=== PATIENT | female | born 1955 | race Caucasian/White ===

== ENCOUNTER 2019-01-15 13:32 | Observation (INO) ==
--- NOTE | 2019-01-15 13:37 | Emergency Department Note ---
Disposition Clinical Impression: Hyponatremia, Suicidal ideation Elbow fracture, right Qualifiers: Encounter type: initial encounter Fracture type: closed Qualified Code(s): S42.401A - Unspecified fracture of lower end of right humerus, initial encounter for closed fracture Disposition: Admitted As Inpatient Time of Disposition: 16:47 General Adult HPI - General Stated complaint: psych, leg fracture Time Seen by Provider: 01/15/19 13:32 - Related Data Home Medications Medication Instructions Recorded Confirmed DULoxetine [Cymbalta] 60 mg PO BID 01/24/15 01/15/19 OLANZapine [Zyprexa] 15 mg PO HS 09/13/16 01/15/19 Trazodone HCl 50 mg PO HS 09/13/16 01/15/19 clonazePAM [Klonopin] 1 mg PO QID 09/13/16 01/15/19 Allergies Allergy/AdvReac Type Severity Reaction Status Date / Time Penicillins Allergy Difficulty Verified 01/15/19 13:53 Breathing Past Medical History - Past Medical History Medical history: Reports: COPD, GERD, other Surgical history: Reports: cholecystectomy Psychiatric history: Reports: anxiety, bipolar, panic disorder, prior suicide attempt, previous psychiatric hospitalization CLOTH SHADER history: Reports: no CLOTH SHADER history - Social History Smoking Status: Current every day smoker Smokeless Tobacco Status: No Alcohol use: Reports: recent Drug use: Reports: none Course Vital Signs Temperature 98 F 01/15/19 13:41 Pulse Rate 106 01/15/19 13:41 Respiratory Rate 16 01/15/19 13:41 Blood Pressure 136/106 01/15/19 13:41 O2 Sat by Pulse Oximetry 99 01/15/19 13:41 Temperature 98 F 01/15/19 13:41 Pulse Rate 108 01/15/19 15:14 Respiratory Rate 16 01/15/19 13:41 Blood Pressure 162/69 01/15/19 15:14 O2 Sat by Pulse Oximetry 99 01/15/19 15:14 Oxygen Delivery Oxygen Delivery Room Air Medical Decision Making - Lab Data Result diagrams: 01/15/19 13:54 Lab Results 01/15/19 Range/Units 13:54 Sodium 127 L (136-145) mEq/L Potassium 4.1 (3.5-5.1) mEq/L Chloride 95 L (98-107) mEq/L Carbon Dioxide 22 L (23-29) mEq/L BUN 4 L (8-23) mg/dL Creatinine 0.49 L (0.60-1.20) mg/dL Est GFR ( Amer) > 60 (> 60) Est GFR (Non-Af Amer) > 60 (> 60) BUN/Creatinine Ratio 8 (6-26) Glucose 123 H (70-105) mg/dL Calculated Osmolality 262 L (280-300) Calcium 9.5 (8.6-10.3) mg/dL Attestation Statement - Attestation Attestation: I reviewed the residents documentation and agree with the residents assessment and plan of care. I have personally had face to face time with the patient. (Brief History, Brief Exam, and MDM) I personally supervised and was present for the ahn/critical portions of the following procedures completed by the resident: (add procedures performed here). [id number] time provided Patient presents as a transfer from an outside facility due to hyponatremia. She presented there exhibiting anxiety. She does admit to a fall and was diagnosed with a right elbow fracture. She was splinted prior to transport. I did review the labs drawn at the outside facility and see what her sodium is 119. This could possibly be SIADH secondary to her Zyprexa. She will likely require medical admission for trending of her serum sodium level prior to mental health consultation
[2019-01-15] MEDS ORDERED: Acetaminophen 325 MG TABLET PO ONE (14:13)
[2019-01-15] MEDS ORDERED: Ibuprofen 600 MG TABLET PO ONE (14:13)
--- NOTE | 2019-01-15 14:13 | Emergency Department Note ---
Disposition Clinical Impression: Hyponatremia, Suicidal ideation Elbow fracture, right Qualifiers: Encounter type: sequela Fracture type: closed Qualified Code(s): S42.401S - Unspecified fracture of lower end of right humerus, sequela Disposition: Admitted As Inpatient Forms: ED Satisfaction Letter Time of Disposition: 14:32 General Adult HPI - General Chief complaint: ED Psychiatric Symptoms Stated complaint: psych, leg fracture Time Seen by Provider: 01/15/19 13:32 Source: patient, EMS Mode of arrival: EMS Limitations: no limitations Nursing Notes Reviewed: Yes Vital Signs Reviewed: Yes - History of Present Illness HPI Narrative: 63F with PMHx of COPD and GERD presents from [place] after stopping her medications and admitting to . Pt was found to by hyponatremic and was therefore sent to the ED for further evaluation before psych consultation. Patient states she recently fell on a hospital she has been shaking more since they stopped her Klonopin. She fell on her right arm and fractured her right elbow and it is now in a sling. She has felt extremely shaky recently and states that she wants to kill herself by overdosing on sleeping medications. She states she has felt suicidal like this for a while but never had a plan before. She has never had low sodium before but does admit to drinking more water recently as she constantly has a dry throat and feels thirsty. Pain Scale: 10 - Related Data Home Medications Medication Instructions Recorded Confirmed DULoxetine [Cymbalta] 60 mg PO BID 01/24/15 01/15/19 OLANZapine [Zyprexa] 15 mg PO HS 09/13/16 01/15/19 Trazodone HCl 50 mg PO HS 09/13/16 01/15/19 clonazePAM [Klonopin] 1 mg PO QID 09/13/16 01/15/19 Allergies Allergy/AdvReac Type Severity Reaction Status Date / Time Penicillins Allergy Difficulty Verified 01/15/19 13:53 Breathing All systems ED: reviewed and negative except as stated. Review of Systems: As Per HPI Constitutional: Denies: fever, chills, weakness ENT ED: Reports: throat pain Cardiovascular: Denies: chest pain, palpitations, dyspnea on exertion Respiratory: Denies: cough, dyspnea, wheezes Gastrointestinal: Denies: abdominal pain, nausea, vomiting Genitourinary: Reports: frequency. Denies: dysuria, hematuria Musculoskeletal: Denies: back pain, neck pain Integumentary: Denies: rash Neurological: Denies: headache Endocrine: Denies: fatigue Past Medical History - Past Medical History Attestation: Yes The following information was validated with the patient. Source: patient Medical history: Reports: COPD, GERD, other Surgical history: Reports: cholecystectomy Psychiatric history: Reports: anxiety, bipolar, panic disorder, prior suicide attempt, previous psychiatric hospitalization ENTERPRISE ACCOUNT MANAGER history: Reports: no ENTERPRISE ACCOUNT MANAGER history - Social History Smoking Status: Current every day smoker Smokeless Tobacco Status: No Alcohol use: Reports: none Drug use: Reports: marijuana Physical Exam - General Limitations: no limitations General appearance: alert, in no apparent distress - Head Head exam: atraumatic, normocephalic - Eye Eye exam: Present: normal appearance, EOMI - Chest Chest inspection: Present: normal inspection. Absent: tenderness - Respiratory Respiratory exam: Present: normal lung sounds bilaterally. Absent: wheezes - Cardiovascular Cardiovascular exam: Present: normal rhythm, tachycardia - Abdominal Exam Abdominal exam: Present: soft, Non-Tender. Absent: distention, guarding, rebound, rigidity - Extremities Exam Extremities exam: Present: other (Right arm in a splint with left knee and a knee brace. No other abnormalities on extremity exam.) - Neurological Exam Neurological exam: Present: alert, oriented X3 - Psychiatric Psychiatric exam: Present: normal affect, normal mood - Skin Skin exam: Present: warm, dry, intact Course Vital Signs Temperature 98 F 01/15/19 13:41 Pulse Rate 106 01/15/19 13:41 Respiratory Rate 16 01/15/19 13:41 Blood Pressure 136/106 01/15/19 13:41 O2 Sat by Pulse Oximetry 99 01/15/19 13:41 Temperature 98 F 01/15/19 13:41 Pulse Rate 106 01/15/19 13:41 Respiratory Rate 16 01/15/19 13:41 Blood Pressure 136/106 01/15/19 13:41 O2 Sat by Pulse Oximetry 99 01/15/19 13:41 Oxygen Delivery Oxygen Delivery Room Air Medical Decision Making - MDM Narrative Medical decision making narrative: Patient presents with hyponatremia and suicidal ideations. Due to her hypo natremia psych will not see her at this time. She will be admitted to the hospital for treatment of her hyponatremia. Urine sodium and also all the studies have been ordered and a repeat sodium has also been ordered. We will place a consult to psych for them to see her when she is an inpatient. Hospitalist has been paged. [id number] - patient has been accepted to the hospital by Dr. Tobin - Medical Records Medical records reviewed: Yes I reviewed the patient's medical records. - Lab Data Lab results reviewed: Yes I reviewed the patient's lab results. Result diagrams: 01/15/19 13:54 Lab Results 01/15/19 Range/Units 13:54 Sodium 127 L (136-145) mEq/L Potassium 4.1 (3.5-5.1) mEq/L Chloride 95 L (98-107) mEq/L Carbon Dioxide 22 L (23-29) mEq/L BUN 4 L (8-23) mg/dL Creatinine 0.49 L (0.60-1.20) mg/dL Est GFR ( Amer) > 60 (> 60) Est GFR (Non-Af Amer) > 60 (> 60) BUN/Creatinine Ratio 8 (6-26) Glucose 123 H (70-105) mg/dL Calculated Osmolality 262 L (280-300) Calcium 9.5 (8.6-10.3) mg/dL
[2019-01-15 14:32] LABS: BUN/Creatinine Ratio 8 (6-26); Blood Urea Nitrogen 4 mg/dL (8-23); Calcium 9.5 mg/dL (8.6-10.3); Carbon Dioxide 22 mEq/L (23-29); Chloride 95 mEq/L (98-107); Glucose 123 mg/dL (70-105); Osmolality,Calculated 262 (280-300); Potassium 4.1 mEq/L (3.5-5.1); Sodium 127 mEq/L (136-145); eGFR For African Americans > 60 (> 60); eGFR For Non-African Americans > 60 (> 60)
[2019-01-15] MEDS ORDERED: Nicotine 21 MG PATCH.TD24 TD ONE (14:45)
[2019-01-15] MEDS ORDERED: Naloxone 0.4 MG/ML INJ IVP PRN (16:13)
--- NOTE | 2019-01-15 16:16 | Internal Med History&Physical ---
Date of Encounter: 01/15/19 Time of Encounter: 16:00 Internal Medicine - H&P: HPI Chief complaint: Hyponatremia Admitted From: Emergency Dept Plans for Post Hospital Care: Home History of present illness: Ms. Osullivan is a 63 year old female with a past medical history significant for mood disorder, anxiety and depression, was brought to the emergency department from [facility] after she was found to have hyponatremia and suicidal ideation. Patient initially went to the [place] emergency for the psychiatric medical clearance as she will threaten to kill herself by taking overdose of pills. Lab work at that time showed sodium of 119. Patient also fell down and fractured her arm. Because of the suicidal ideation, hyponatremia patient was sent to the [facility]. Patient was hemodynamically stable in the emergency department. Repeat lab work showed a sodium of 127. Creatinine of 0.5 , elevated AST. UDS was negative. Because of the fall, x-ray of the elbow was done which showed mildly displaced fracture involving the articular surface of the capitellum. Patient was admitted for further management. At this point, patient denied any suicidal active ideation. She is in distress because he is not getting the Klonopin. She is been feeling weak. She is having the tremors because of weakness and Klonopin withdrawal.. Denies fever, chills, rigors. Endorses mild shortness of breath. Looking very comfortable. She mentions that she fell down because of the tremors. Patient endorses drinking a lot of water for the past few days that she has been feeling her mouth is very dry. Discussed with her the medication she is taking and she mentioned to take the Paxil, Cymbalta, trazodone, detrol. Denies any [id number] medications. Denies alcohol use. Past Med Surg Social Fam HX - Past Medical History Medical history: COPD, GERD, other Additional medical history: Peptic ulcer, Nerve pain Psychiatric history: anxiety, bipolar, panic disorder, prior suicide attempt, previous psychiatric hospitalization - Past Surgical History Surgical History: cholecystectomy Additional surgical history: D & C, Bilateral carpal tunnel release - Social History Smoking Status: Current every day smoker Smokeless Tobacco Status: No Alcohol use: none Drug use: marijuana - Additional Family History Additional family history: Mother has hisotry of CAD. Brother is also sufering from CAD Internal Medicine - H&P: Meds DULoxetine [Cymbalta] 60 mg PO BID 01/24/15 [History] OLANZapine [Zyprexa] 15 mg PO HS 09/13/16 [History] Trazodone HCl 50 mg PO HS 09/13/16 [History] clonazePAM [Klonopin] 1 mg PO QID 09/13/16 [History] Allergy/AdvReac Type Severity Reaction Status Date / Time Penicillins Allergy Difficulty Verified 01/15/19 13:53 Breathing All Systems PM: A 10-system review of systems was performed and is negative for pertinent findings except as documented above in the HPI. Review of systems: General: Negative for fever, chills, rigors. HEENT: Negative for neck swelling, discharge from nose, discharge from ears. EYES: Negative for any discharge from the eyes. Respiratory: Negative for shortness of breath, orthopnea, exertional dyspnea. Cardiovascular: Negative for chest pain, shortness of breath, orthopnea, PND. Gastrintestical: Negative for diarrhea, constipation, blood in stools. Genitourinary: Negative for dysuria, hematuria, nocturia, increased frequency of urine. Hematological: Negative for blood loss, negative for active cancer. Neurological: Negative for headache, dizziness, blurry vision, loss os power and sensations. Endocrinology: Negative for constipation, polyuria, polydipsia. Integumentary: See HPI Psychiatric: See HPI - Constitutional Vitals: Temp Pulse Resp BP Pulse Ox 98 F 108 16 162/69 99 01/15/19 13:41 01/15/19 15:14 01/15/19 13:41 01/15/19 15:14 01/15/19 15:14 Exam: General: Alert and oriented, no physical distress, able to follow commands. HEENT: No thyromegaly, no lymphadenopathy, no discharge. Eyes: No discharge. Normal conjuctiva, no icterus Respiratory: Normal vesicular breathing, no added sounds, breathing equal in both sides. CVS: Normal heart sounds, no murmurs, regular rhthm, no edema Extremities: No peripheral edema, peripheral pulses intact. Lymph nodes: No lymphadenopathy Musculoskeleal: Right arm wrapped. Tenderness with motion Gastrointestinal: Soft, nontender abdomen, normal abdominal sounds. No distention noted. Genitourinary: No paravertebral tenderness. Skin: No rash, ulcers or wound. Neurological: Alert and oriented. No focal deficits. Cranial nerves II-XII intact. Internal Med - H&P Results - Labs CBC & Chem 7: 01/15/19 13:54 Labs: BMP 01/15/19 13:54 Sodium 127 L Potassium 4.1 Chloride 95 L Carbon Dioxide 22 L BUN 4 L Creatinine 0.49 L Glucose 123 H Calcium 9.5 - Assessment and Plan (1) Hyponatremia Current Visit: Yes Status: Acute Assessment and plan: Etiology is unclear. Could be SIADH vs primary polydipsia. plasma osmolality is very low. Urine studies are pending. Patient was given 1 L of IV fluids in the [facility] emergency department. Repeat sodium is 127. Patient had a rise of 8 in 4 hours. Repeat sodium level stat. Consult nephrology who will see the patient today. BMP every 4 hours. Fluid restriction at this point of 1 L/day. Await further studies. -Hold off on antipsychotic medications of the patient because of the risk of SIADH. (2) Tobacco abuse Current Visit: Yes Status: Acute Assessment and plan: Smoked 3 pack per day. Nicotine patches ordered. Patient advised to quit smoking. (3) Elbow fracture, right Current Visit: Yes Status: Acute Assessment and plan: Because of the fall. Follow because of the tremors. Ortho consulted. x-ray findings mentioned in the history of present illness. -Pain management. Qualifiers: Encounter type: initial encounter Fracture type: closed Qualified Code(s): S42.401A - Unspecified fracture of lower end of right humerus, initial encounter for closed fracture (4) Suicidal ideation Current Visit: Yes Status: Acute Assessment and plan: Sitter ordered The psychiatry has been consulted. (5) Anxiety Current Visit: No Status: Acute Assessment and plan: Restart the patient Klonopin. Hold off on the other psychiatric medications at this point. (6) Cannabis abuse Current Visit: No Status: Acute Assessment and plan: Advised to stop using cannabis. (7) Depression Current Visit: No Status: Acute Assessment and plan: History of depression. As mentioned above continue Klonopin, hold off on the other medications considering concerns of SIADH. Qualifiers: Depression Type: unspecified Qualified Code(s): F32.9 - Major depressive disorder, single episode, unspecified (8) Benzodiazepine dependence Current Visit: Yes Status: Acute Assessment and plan: Patient has been having tremors because of the benzodiazepine withdrawal. To start the patient back on her home dose of Klonopin. Psychiatry was consulted. - Time Spent With Patient Total time spent is greater than 50% in coordination of care (as documented) at patient's floor/unit and/or counseling patient:
[2019-01-15] MEDS ORDERED: Ibuprofen 600 MG TABLET PO PRN (16:24)
--- NOTE | 2019-01-15 16:55 | Nephrology Consult Note ---
Date of Encounter: 01/15/19 Time of Encounter: 16:00 Assessment and Plan (1) Hyponatremia Current Visit: Yes Status: Acute Acute hyponatremia in the setting of excessive fluid consumption while on psych meds Agree with holding psych meds Agree sodium jump by 8 points after NS excessive, no more IVF today Can repeat sodium level to verify. Does not need D5W at this time Urine osm, sodium still not sent Check TSH, cortisol and uric acid levels (2) Elbow fracture, right Current Visit: Yes Status: Acute Ortho consulted Qualifiers: Encounter type: initial encounter Fracture type: closed Qualified Code(s): S42.401A - Unspecified fracture of lower end of right humerus, initial encounter for closed fracture (3) Suicidal ideation Current Visit: Yes Status: Acute Per primary, Psych consult needed History of Present Illness - Reason for Consult Consult date: 01/15/19 hyponatremia Requesting physician: Kevin Youngblood - History of Present Illness 63 y o female with PMH of COPD, GERD, anxiety and bipoladr d/ admitted as a transfer from [facility] where she presented with suicidal ideation. Pt was noted with sodium of 119 previously WNL. Pt received a bolus of NS with repeat sodium up to 127. Renal consulted for management. Pt landon nd examined somewhat agitated, demanding her medications immediately. Pt also affirms excessive fluid intake at least a gallon or two a day. Denies any diuretics. No N/V/D Past Med Surg Social Fam HX - Past Medical History Medical history: COPD, GERD, other Additional medical history: Peptic ulcer, Nerve pain Psychiatric history: anxiety, bipolar, panic disorder, prior suicide attempt, previous psychiatric hospitalization - Past Surgical History Surgical History: cholecystectomy Additional surgical history: D & C, Bilateral carpal tunnel release - Social History Smoking Status: Current every day smoker Smokeless Tobacco Status: No Alcohol use: none Drug use: marijuana - Family History Mother History Unknown: Yes Adopted: No Living Status: Hx Family Cardiac Disorders: Yes Hx Family Respiratory Disorders: No Hx Family Cancer: No Hx Family GI Disorders: No Hx Family Endocrine Disorder: No Hx Family Musculoskeletal Disorders: No Hx Family Neuromuscular Disorders: No Hx Family Neurologic Disorders: No Hx Family HEENT Disorders: No Hx Family Autoimmune Disorders: No Hx Family Reproductive Disorders: No Hx Family Psychosocial Disorders: No Medications and Allergies DULoxetine [Cymbalta] 60 mg PO BID 01/24/15 [History] OLANZapine [Zyprexa] 15 mg PO HS 09/13/16 [History] Pantoprazole Sodium [Protonix] 40 mg PO DAILY 01/16/19 [History] Ranitidine HCl [Acid English Composition Instructor] 150 mg PO BID 01/16/19 [History] Sucralfate [Carafate] 1 gm PO BID 01/16/19 [History] Tolterodine Tartrate [Detrol] 1 mg PO BID 01/16/19 [History] clonazePAM [Clonazepam] 0.5 mg PO HS 01/16/19 [History] clonazePAM [Clonazepam] 1 mg PO QAM 01/16/19 [History] traZODone [TraZODone] 50 mg PO HS 01/16/19 [History] Allergy/AdvReac Type Severity Reaction Status Date / Time Penicillins Allergy Difficulty Verified 01/15/19 13:53 Breathing Review of Systems All Systems review (narrative): The rest of the systema are negative Constitutional: fatigue (admits) Cardiovascular: chest pain (denies), leg edema (denies) Respiratory: dyspnea (denies) Psychiatric: anxiety (admits), depression (admits), suicidal ideation (admits) Exam - Vital Signs Vital signs: Initial Vital Signs Temp Pulse Resp BP Pulse Ox 98 F 106 16 136/106 99 01/15/19 13:41 01/15/19 13:41 01/15/19 13:41 01/15/19 13:41 01/15/19 13:41 Vital Signs - Last 8 Hours Temp Pulse Resp BP Pulse Ox 01/15/19 15:14 108 162/69 99 01/15/19 13:41 98 F 106 16 136/106 99 Intake and Output 01/15/19 01/15/19 01/15/19 07:59 15:59 23:59 Other: Weight 42.638 kg Patient Weight 01/15/19 23:59 Weight 42.638 kg - General Appearance General appearance: chronically ill (NAD) EENT: ATNC, mucous membranes moist Neck: no JVD, supple Respiratory: clear Cardiology: no edema, normal S1, normal S2 Gastrointestinal: no tenderness, no guarding Integumentary: warm and dry Neurologic: no focal deficit Musculoskeletal: no deformities Psychiatric: agitated, cooperative Results - Lab Results 01/16/19 02:07 01/16/19 17:17 Most recent lab results 01/15/19 13:54 Calcium 9.5 Consult Discharge Plan - Plan Referrals: Ty Parikh MD [Primary Care Provider] -
[2019-01-15] MEDS: clonazePAM 1 MG TABLET PO SCH ×2 (17:09→21:20)
[2019-01-15] MEDS: *HR* Heparin 5,000 UNIT/ML VIAL SQ SCH (17:31)
[2019-01-15 17:47] LABS: Sodium, Urine 29.4 mEq/L
[2019-01-15 18:28] LABS: BUN/Creatinine Ratio 13 (6-26); Blood Urea Nitrogen 7 mg/dL (8-23); Calcium 9.4 mg/dL (8.6-10.3); Carbon Dioxide 26 mEq/L (23-29); Chloride 96 mEq/L (98-107); Glucose 116 mg/dL (70-105); Osmolality,Calculated 265 (280-300); Potassium 4.3 mEq/L (3.5-5.1); Sodium 128 mEq/L (136-145); Uric Acid 2.7 mg/dL (2.3-7.6); eGFR For African Americans > 60 (> 60); eGFR For Non-African Americans > 60 (> 60)
--- NOTE | 2019-01-15 19:48 | Orthopedic Consult Note ---
Date of Encounter: 01/15/19 Time of Encounter: 19:43 History of Present Illness Chief complaint: Right elbow pain HPI: Ms. Osullivan is a 63 year old right hand dominant female who sustained an injury to her right elbow in a fall. Patient is unsure the exact mechanism but describes pain predominantly involving the lateral side of the right elbow. This reportedly happened several days ago. At this time the patient is complaining of lateral pain and a popping sensation as well as swelling and redness in the arm. Denies neurovascular complaints. Denies any other injuries. I reviewed the patient's completed history and physical examination as well as the completed medical record. Pertinent orthopedic examination reveals marked amount of erythema in the right arm from the elbow distal. There is ecchymosis and edema especially involving the extensor compartment proximally. Tenderness is identified over the lateral epicondyle and to a lesser degree of the radial head. Motion is limited to about a 20 degree extension loss and approximately 25-30 degree flexion loss. Supination is about 45 degrees. Neurovascular exam is intact. I reviewed the x-rays of the right elbow. This reveals a anterior fat pad. There is what appears to be a nondisplaced fracture involving the lateral aspect of the capitellum. It is unclear if this is an impaction type injury with a small avulsion fracture. Impression: Nondisplaced fracture right capitellum Recommendation: This is a stable fracture and I recommend conservative treatment with the use of a sling and starting the patient on active range of motion to minimize stiffness. I have removed the previously placed long arm splint. Would recommend the sling and possibly instituting a supervised therapy program with occupational therapist. Follow-up can be as an outpatient in about 3-4 weeks' time. Thank you very much for allowing me to see and care for Mrs. Osullivan. Sincerely, Kash Engle,DO Past Med Surg Social Fam HX - Past Medical History Medical history: COPD, GERD, other Additional medical history: Peptic ulcer, Nerve pain Psychiatric history: anxiety, bipolar, panic disorder, prior suicide attempt, previous psychiatric hospitalization - Past Surgical History Surgical History: cholecystectomy Additional surgical history: D & C, Bilateral carpal tunnel release - Social History Smoking Status: Current every day smoker Smokeless Tobacco Status: No Alcohol use: none Drug use: marijuana - Family History Mother History Unknown: Yes Adopted: No Living Status: Hx Family Cardiac Disorders: Yes Hx Family Respiratory Disorders: No Hx Family Cancer: No Hx Family GI Disorders: No Hx Family Endocrine Disorder: No Hx Family Musculoskeletal Disorders: No Hx Family Neuromuscular Disorders: No Hx Family Neurologic Disorders: No Hx Family HEENT Disorders: No Hx Family Autoimmune Disorders: No Hx Family Reproductive Disorders: No Hx Family Psychosocial Disorders: No Medications and Allergies DULoxetine [Cymbalta] 60 mg PO BID 01/24/15 [History] OLANZapine [Zyprexa] 15 mg PO HS 09/13/16 [History] Trazodone HCl 50 mg PO HS 09/13/16 [History] clonazePAM [Klonopin] 1 mg PO QID 09/13/16 [History] Allergy/AdvReac Type Severity Reaction Status Date / Time Penicillins Allergy Difficulty Verified 01/15/19 13:53 Breathing All Systems Reviewed: The remainder of the systems were reviewed and are negative Physical Exam - Constitutional Vitals: Temp Pulse Resp BP Pulse Ox 98 F 108 16 162/69 99 01/15/19 13:41 01/15/19 15:14 01/15/19 13:41 01/15/19 15:14 01/15/19 15:14 Results - Labs Result Diagrams: 01/15/19 16:25 Labs: Abnormal lab results Sodium 128 mEq/L (136-145) L 01/15/19 16:25 Chloride 96 mEq/L (98-107) L 01/15/19 16:25 Carbon Dioxide 22 mEq/L (23-29) L 01/15/19 13:54 BUN 7 mg/dL (8-23) L 01/15/19 16:25 Creatinine 0.55 mg/dL (0.60-1.20) L 01/15/19 16:25 Glucose 116 mg/dL (70-105) H 01/15/19 16:25 Calculated Osmolality 265 (280-300) L 01/15/19 16:25 Urine Osmolality 143 mOsm/kg (300-1090) L 01/15/19 17:23 All other labs normal. - Diagnostic results Elbow x-ray: image reviewed Consult Discharge Plan - Plan Referrals: Ty Parikh MD [Primary Care Provider] -
[2019-01-15 20:23] LABS: BUN/Creatinine Ratio 16 (6-26); Blood Urea Nitrogen 9 mg/dL (8-23); Calcium 8.9 mg/dL (8.6-10.3); Carbon Dioxide 26 mEq/L (23-29); Chloride 95 mEq/L (98-107); Glucose 131 mg/dL (70-105); Osmolality,Calculated 260 (280-300); Potassium 4.3 mEq/L (3.5-5.1); Sodium 125 mEq/L (136-145); eGFR For African Americans > 60 (> 60); eGFR For Non-African Americans > 60 (> 60)
[2019-01-15] MEDS: *HR* Promethazine 25 MG/ML VIAL IVP PRN (21:20)
[2019-01-15] MEDS ORDERED: Ipratropium/Albuterol Neb 3 ML IH PRN (21:31)
[2019-01-15] MEDS ORDERED: Menthol 9.1 MG LOZENGE PO PRN (21:31)
[2019-01-15 23:50] LABS: BUN/Creatinine Ratio 13 (6-26); Blood Urea Nitrogen 7 mg/dL (8-23); Calcium 8.8 mg/dL (8.6-10.3); Carbon Dioxide 23 mEq/L (23-29); Chloride 97 mEq/L (98-107); Glucose 87 mg/dL (70-105); Osmolality,Calculated 263 (280-300); Potassium 4.1 mEq/L (3.5-5.1); Sodium 128 mEq/L (136-145); eGFR For African Americans > 60 (> 60); eGFR For Non-African Americans > 60 (> 60)
[2019-01-16 02:21] LABS: Basophils # 0.1 K/mcL (0.0-0.2); Basophils % 0.7 %; Eosinophils % 0.4 %; Hematocrit 33.5 % (35.3-44.9); Hemoglobin 11.9 g/dL (11.5-15.4); Immature Granulocytes % 0.4 % (0-4); Lymphocytes # 1.7 K/mcL (0.6-4.6); Mean Corpuscular HGB Conc 35.5 g/dL (31.6-35.5); Mean Corpuscular Hemoglobin 32.8 pg (28.0-33.3); Mean Corpuscular Volume 92.3 fL (83.0-100.0); Mean Platelet Volume 10.2 fL (9.4-12.4); Monocytes # 0.9 K/mcL (0.0-1.3); Monocytes % 12.4 %; Neutrophils # 4.7 K/mcL (1.6-8.9); Platelet Count 242 K/mcL (140-400); Red Blood Count 3.63 M/mcL (3.82-4.97); Red Cell Distribution Width 12.4 % (11.5-14.5); Segmented Neutrophils % 63.1 %; White Blood Count 7.4 K/mcL (4.3-11.1)
[2019-01-16 02:44] LABS: Alanine Aminotransferase 37 Units/L (7-52); Albumin/Globulin Ratio 1.9 (1.1-2.2); Alkaline Phosphatase 67 Units/L (34-104); Aspartate Amino Transferase 83 Units/L (13-39); BUN/Creatinine Ratio 11 (6-26); Bilirubin,Total 0.6 mg/dL (0.3-1.0); Blood Urea Nitrogen 6 mg/dL (8-23); Calcium 9.1 mg/dL (8.6-10.3); Carbon Dioxide 26 mEq/L (23-29); Chloride 98 mEq/L (98-107); Globulin 2.1 g/dL (2.4-3.5); Glucose 94 mg/dL (70-105); Osmolality,Calculated 271 (280-300); Sodium 132 mEq/L (136-145); Total Protein 6.1 g/dL (6.4-8.9); eGFR For African Americans > 60 (> 60); eGFR For Non-African Americans > 60 (> 60)
[2019-01-16] MEDS ORDERED: D5% in Water 250 ML IVC SCH (03:30)
[2019-01-16] MEDS: *HR* Promethazine 25 MG/ML VIAL IVP PRN ×2 (03:48→23:31)
[2019-01-16] MEDS: Acetaminophen 325 MG TABLET PO PRN (05:15)
[2019-01-16] MEDS: *HR* Heparin 5,000 UNIT/ML VIAL SQ SCH ×2 (05:16→18:54)
[2019-01-16 06:05] LABS: BUN/Creatinine Ratio 11 (6-26); Blood Urea Nitrogen 6 mg/dL (8-23); Carbon Dioxide 25 mEq/L (23-29); Chloride 99 mEq/L (98-107); Glucose 88 mg/dL (70-105); Osmolality,Calculated 273 (280-300); Sodium 133 mEq/L (136-145); eGFR For African Americans > 60 (> 60); eGFR For Non-African Americans > 60 (> 60)
[2019-01-16 08:43] LABS: BUN/Creatinine Ratio 11 (6-26); Blood Urea Nitrogen 6 mg/dL (8-23); Calcium 8.9 mg/dL (8.6-10.3); Carbon Dioxide 25 mEq/L (23-29); Chloride 99 mEq/L (98-107); Glucose 96 mg/dL (70-105); Osmolality,Calculated 271 (280-300); Potassium 4.1 mEq/L (3.5-5.1); Sodium 132 mEq/L (136-145); eGFR For African Americans > 60 (> 60); eGFR For Non-African Americans > 60 (> 60)
--- NOTE | 2019-01-16 08:55 | Consult Note ---
Date of Encounter: 01/16/19 Time of Encounter: 08:55 Assessment & Recommendation (1) Depression Current visit: No Status: Acute Assessment & Recommendation: Patient endorses a history of depression and anxiety, and reports that she has had multiple episodes of suicidal ideation the past. She reports that she does have a plan, and would take "sleeping pills" to in her life. She denies having ever attempted this in the past. When asked if she has access to these types of medication, patient reports that she is on trazodone, which is what she would use in her life. Patient reports that she does not have much social support in place, as her family members have not been talking to her. Recommendations: - Continue home medications of trazodone and Cymbalta. - Hold Zyprexa, as this may be interesting to her hyponatremia. - Patient's home medication list in [facility] shows Klonopin 1 mg QID; however, review of her [facility] report shows Klonopin 1 mg with 21 pills for 14 days supply, which would be consistent with 0.5mg TID. Recommend continuing that dose of klonopin at this time. - Once medically stable, patient [facility] for [facility] management and stabilization of her depression. Qualifiers: Depression Type: major depressive disorder Major depression recurrence: recurrent Active/Remission status: currently active Major depression episode severity: severe Psychotic features: without psychotic features Qualified Code(s): F33.2 - Major depressive disorder, recurrent severe without psychotic features History of Present Illness Requesting Physician: Kevin Youngblood Reason for consult: Suicidal ideation History of present illness: Ms. Osullivan is a 63 year old female with a history of COPD, GERD, anxiety, depression, bipolar disorder, panic disorder, and previous psychiatric hospitalization who presented to the emergency department as a transfer from [facility], where she was found to have hyponatremia and endorsed suicidal ideation. Serum sodium was found to be significantly decreased at 119 at that facility, with repeat laboratory studies performed upon arrival to [facility] showing sodium of 127. The patient was admitted to the medical floor for management of hyponatremia and consult was placed to psychiatry for evaluation. Patient does have a history of depression, with multiple emergency department visits for psychiatric complaints and two inpatient admissions to in the past. On evaluation today, patient endorses that she has thoughts of killing herself on a daily basis, and does endorse a plan to end her life, stating that she would take an overdose of sleeping pills, which she currently has a prescription for. She voices that she does not have much social or family support, as she only has 2 cousins, one of which will not speak to her after something that she must have said to them while high on marijuana. She does report that she has 2 friends that live [place], one of whom is currently taking care of her dog but she is in the hospital. She voices a long- standing history of depression and anxiety, and lists multiple medications that she is currently on. She does inquire as to why she has not received her morning medication, including Klonopin, Cymbalta, and a "medication for her bladder". She denies any visual or auditory hallucinations or racing thoughts. CC: Kevin Youngblood Past Med Surg Social Fam HX - Past Medical History Medical history: COPD, GERD, other - Past Psychiatric History Psychiatric history: Reports: anxiety, depression, previous psychiatric hospitalization - Past Surgical History Surgical History: cholecystectomy - Social History Smoking Status: Current every day smoker Smokeless Tobacco Status: No Alcohol use: none Drug use: marijuana (reports weekly marijuana use) - Family History Mother History Unknown: Yes Adopted: No Living Status: Hx Family Cardiac Disorders: Yes Hx Family Respiratory Disorders: No Hx Family Cancer: No Hx Family GI Disorders: No Hx Family Endocrine Disorder: No Hx Family Musculoskeletal Disorders: No Hx Family Neuromuscular Disorders: No Hx Family Neurologic Disorders: No Hx Family HEENT Disorders: No Hx Family Autoimmune Disorders: No Hx Family Reproductive Disorders: No Hx Family Psychosocial Disorders: No Medications & Allergies DULoxetine [Cymbalta] 60 mg PO BID 01/24/15 [History] OLANZapine [Zyprexa] 15 mg PO HS 09/13/16 [History] Trazodone HCl 50 mg PO HS 09/13/16 [History] clonazePAM [Klonopin] 1 mg PO QID 09/13/16 [History] Allergy/AdvReac Type Severity Reaction Status Date / Time Penicillins Allergy Difficulty Verified 01/15/19 13:53 Breathing Review of Systems Constitutional: Denies: fever, chills Cardiovascular: Denies: chest pain Respiratory: Denies: cough, dyspnea Gastrointestinal: Reports: nausea. Denies: abdominal pain Musculoskeletal: Denies: back pain Integumentary: Denies: rash Neurological: Reports: abnormal gait. Denies: headache Psychiatric: Reports: depression, anxiety, suicidal ideation. Denies: abnormal sleep pattern, change in appetite, homicidal ideation, auditory hallucinations, visual hallucinations, mood swings Endocrine: Denies: fatigue Psychiatry Exam - Constitutional Vitals: Temp Pulse Resp BP Pulse Ox 98.2 F 100 16 118/64 96 01/16/19 07:44 01/16/19 07:44 01/16/19 07:44 01/16/19 07:44 01/16/19 07:44 General appearance: age & developmentally appropriate, well-groomed, well- nourished - Musculoskeletal Strength & Tone: normal for patient (Grossly normal on observation) - Psychiatric Patient Orientation: Yes Person, Yes Time, Yes Place Level of alertness: Alert Behavior: calm, cooperative Psychomotor activity: Normal Eye Contact: Maintains Eye Contact Mood Description: Depressed Affect description: congruent with mood, full range Speech Volume: Normal Speech pattern: normal rate, normal rhythm, normal tone, fluent, spontaneous Language & Vocabulary: consistent with education Thought Process: Linear, Goal Oriented Thought Content: Yes Intact, Yes Suicidal ideation, No Homicidal ideation, No Overt delusions Perceptual Disturbances: No Reacting to internal stimuli, No Auditory hallucinations, No Visual hallucinations Attention Span Ability: Capable of Focused Attention Memory Description: Grossly Intact Patient Reliability: Questionable Historian Intelligence Estimate: Average Results - Labs Labs: Laboratory Last Values WBC 7.4 K/mcL (4.3-11.1) D 01/16/19 02:07 RBC 3.63 M/mcL (3.82-4.97) L 01/16/19 02:07 Hgb 11.9 g/dL (11.5-15.4) 01/16/19 02:07 Hct 33.5 % (35.3-44.9) L 01/16/19 02:07 MCV 92.3 fL (83.0-100.0) 01/16/19 02:07 MCH 32.8 pg (28.0-33.3) 01/16/19 02:07 MCHC 35.5 g/dL (31.6-35.5) 01/16/19 02:07 RDW 12.4 % (11.5-14.5) 01/16/19 02:07 Plt Count 242 K/mcL (140-400) 01/16/19 02:07 MPV 10.2 fL (9.4-12.4) 01/16/19 02:07 Immature Gran % 0.4 % (0-4) 01/16/19 02:07 Seg Neutrophils % 63.1 % 01/16/19 02:07 Lymphocytes % 23.0 % 01/16/19 02:07 Monocytes % 12.4 % 01/16/19 02:07 Eosinophils % 0.4 % 01/16/19 02:07 Basophils % 0.7 % 01/16/19 02:07 Neutrophils # 4.7 K/mcL (1.6-8.9) 01/16/19 02:07 Lymphocytes # 1.7 K/mcL (0.6-4.6) 01/16/19 02:07 Monocytes # 0.9 K/mcL (0.0-1.3) 01/16/19 02:07 Eosinophils # 0.0 K/mcL (0.0-0.6) 01/16/19 02:07 Basophils # 0.1 K/mcL (0.0-0.2) 01/16/19 02:07 Sodium 132 mEq/L (136-145) L 01/16/19 08:00 Potassium 4.1 mEq/L (3.5-5.1) 01/16/19 08:00 Chloride 99 mEq/L (98-107) 01/16/19 08:00 Carbon Dioxide 25 mEq/L (23-29) 01/16/19 08:00 BUN 6 mg/dL (8-23) L 01/16/19 08:00 Creatinine 0.53 mg/dL (0.60-1.20) L 01/16/19 08:00 Est GFR ( Amer) > 60 (> 60) 01/16/19 08:00 Est GFR (Non-Af Amer) > 60 (> 60) 01/16/19 08:00 BUN/Creatinine Ratio 11 (6-26) 01/16/19 08:00 Glucose 96 mg/dL (70-105) 01/16/19 08:00 Serum Osmolality 265 mOsm/kg (280-300) L 01/15/19 19:56 Calculated Osmolality 271 (280-300) L 01/16/19 08:00 Uric Acid 2.7 mg/dL (2.3-7.6) 01/15/19 16:25 Calcium 8.9 mg/dL (8.6-10.3) 01/16/19 08:00 Magnesium 2.0 mg/dL (1.6-2.6) 01/16/19 02:07 Total Bilirubin 0.6 mg/dL (0.3-1.0) 01/16/19 02:07 AST 83 Units/L (13-39) H 01/16/19 02:07 ALT 37 Units/L (7-52) 01/16/19 02:07 Alkaline Phosphatase 67 Units/L (34-104) 01/16/19 02:07 Serum Total Protein 6.1 g/dL (6.4-8.9) L 01/16/19 02:07 Albumin 4.0 g/dL (3.5-5.7) 01/16/19 02:07 Globulin 2.1 g/dL (2.4-3.5) L 01/16/19 02:07 Albumin/Globulin Ratio 1.9 (1.1-2.2) 01/16/19 02:07 TSH 1.170 mcIU/mL (0.340-5.600) 01/15/19 16:25 Random Cortisol 17.2 mcg/dl 01/15/19 16:25 Urine Osmolality 143 mOsm/kg (300-1090) L 01/15/19 17:23 Urine Creatinine 17 mg/dL 01/15/19 17:23 Urine Sodium 29.4 mEq/L 01/15/19 17:23 Consult Discharge Plan - Plan Referrals: Ty Parikh MD [Primary Care Provider] - - Attending Attestation I examined this patient and my medical decision-making was reviewed with the Resident Physician. I agree with the documented findings, disposition and treatment plan as described except to the extent set forth below. Patient continues to endorse suicidal thoughts. She requires inpatient care. Given her age and mobility issues she requires a geriatric psychiatric unit.
[2019-01-16] MEDS: clonazePAM 1 MG TABLET PO SCH ×2 (10:10→13:42)
--- NOTE | 2019-01-16 16:51 | Internal Med Progress Note ---
Hospitalist Progress Note - Encounter Date of Encounter: 01/16/19 Time of Encounter: 08:00 - Subjective Interval History: Patient was seen at bedside. Is currently medically stable. Denies fever, chills, rigors. Denies chest pain or shortness of breath. Sodium went up to 133 in the morning and she was given D5 bolus. Repeat was 132. Patient denies a ny dysarthria, dizziness, confusion, focal weakness. Overall feeling better. Sitter in place. - Exam Vitals: Temp Pulse Resp BP Pulse Ox 98.1 F 101 24 133/73 96 01/16/19 14:53 01/16/19 14:53 01/16/19 14:53 01/16/19 14:53 01/16/19 14:53 Exam: General: Alert and oriented, no physical distress, able to follow commands. HEENT: No thyromegaly, no lymphadenopathy, no discharge. Eyes: No discharge. Normal conjuctiva, no icterus Respiratory: Normal vesicular breathing, no added sounds, breathing equal in both sides. CVS: Normal heart sounds, no murmurs, regular rhthm, no edema Extremities: No peripheral edema, peripheral pulses intact. Lymph nodes: No lymphadenopathy Musculoskeleal: Right arm wrapped. Tenderness with motion Gastrointestinal: Soft, nontender abdomen, normal abdominal sounds. No distention noted. Genitourinary: No paravertebral tenderness. Skin: No rash, ulcers or wound. Neurological: Alert and oriented. No focal deficits. Cranial nerves II-XII intact. - Assessment and Plan (1) Hyponatremia Current Visit: Yes Status: Acute Assessment and Plan: Etiology is unclear. Could be SIADH vs primary polydipsia. plasma osmolality is very low. Urine osmolality is also low which goes with polydipsia but the patient was also given IV fluids in the [place] emergency department. Patient initial sodium was 119, went up to 127, remained stable around 125, then went up to 133, she was given 250 of D5, current sodium is 132. We will repeat sodium level stat. Nephrology on board. Appreciate recommendations. Fluid restriction at this point of 1 L/day. -As per psychiatric recommendations, hold off on olanzapine. (2) Tobacco abuse Current Visit: Yes Status: Acute Assessment and Plan: Smoked 3 pack per day. Nicotine patches ordered. Patient advised to quit smoking. (3) Elbow fracture, right Current Visit: Yes Status: Acute Assessment and Plan: Because of the fall. Fall because of the tremors. Ortho consulted. Recommended conservative management. x-ray findings Nondisplaced fracture right capitellum -Pain management. (4) Suicidal ideation Current Visit: Yes Status: Acute Assessment and Plan: Sitter ordered The psychiatry has been consulted. -Patient will benefit from inpatient psychiatric therapy. (5) Anxiety Current Visit: No Status: Acute Assessment and Plan: Restart the patient Klonopin. Hold off on the other psychiatric medications at this point. (6) Cannabis abuse Current Visit: No Status: Acute Assessment and Plan: Advised to stop using cannabis. (7) Depression Current Visit: No Status: Acute Assessment and Plan: History of depression. Restart the patient Klonopin. Trazodone and Cymbalta have also been started as per psychiatric recom mendations.. (8) Benzodiazepine dependence Current Visit: Yes Status: Acute Assessment and Plan: Patient has been having tremors because of the benzodiazepine withdrawal. To start the patient back on her home dose of Klonopin. - Time Spent with Patient Total time spent is greater than 50% in coordination of care (as documented) at patient's floor/unit and/or counseling patient: Internal Medicine: Result - Labs CBC & Chem 7: 01/16/19 02:07 01/16/19 08:00 Labs: Short CBC 01/16/19 Range/Units 02:07 WBC 7.4 D (4.3-11.1) K/mcL Hgb 11.9 (11.5-15.4) g/dL Hct 33.5 L (35.3-44.9) % Plt Count 242 (140-400) K/mcL Neutrophils # 4.7 (1.6-8.9) K/mcL BMP 01/15/19 01/15/19 01/15/19 16:25 19:56 22:49 Sodium 128 L 125 L 128 L Potassium 4.3 4.3 4.1 Chloride 96 L 95 L 97 L Carbon Dioxide 26 26 23 BUN 7 L 9 7 L Creatinine 0.55 L 0.55 L 0.53 L Glucose 116 H 131 H 87 Calcium 9.4 8.9 8.8 01/16/19 01/16/19 01/16/19 02:07 05:15 08:00 Sodium 132 L 133 L 132 L Potassium 4.0 4.0 4.1 Chloride 98 99 99 Carbon Dioxide 26 25 25 BUN 6 L 6 L 6 L Creatinine 0.57 L 0.56 L 0.53 L Glucose 94 88 96 Calcium 9.1 9.0 8.9 Liver Function 01/16/19 Range/Units 02:07 Total Bilirubin 0.6 (0.3-1.0) mg/dL AST 83 H (13-39) Units/L ALT 37 (7-52) Units/L Alkaline Phosphatase 67 (34-104) Units/L Albumin 4.0 (3.5-5.7) g/dL Consult Discharge Plan - Plan Referrals: Ty Parikh MD [Primary Care Provider] - (3) Elbow fracture, right Qualifiers: Encounter type: initial encounter Fracture type: closed Qualified Code(s): S42.401A - Unspecified fracture of lower end of right humerus, initial encounter for closed fracture (7) Depression Qualifiers: Depression Type: major depressive disorder Major depression recurrence: recurrent Active/Remission status: currently active Major depression episode severity: severe Psychotic features: without psychotic features Qualified Code(s): F33.2 - Major depressive disorder, recurrent severe without psychotic features
[2019-01-16 17:45] LABS: BUN/Creatinine Ratio 17 (6-26); Blood Urea Nitrogen 10 mg/dL (8-23); Calcium 9.3 mg/dL (8.6-10.3); Carbon Dioxide 28 mEq/L (23-29); Chloride 98 mEq/L (98-107); Glucose 89 mg/dL (70-105); Osmolality,Calculated 277 (280-300); Potassium 3.9 mEq/L (3.5-5.1); Sodium 134 mEq/L (136-145); eGFR For African Americans > 60 (> 60); eGFR For Non-African Americans > 60 (> 60)
[2019-01-16] MEDS: clonazePAM 0.5 MG TABLET PO SCH ×2 (18:54→19:40)
[2019-01-16] MEDS: Sucralfate 1 GM TABLET PO SCH (19:40)
[2019-01-16] MEDS: traZODone 50 MG TABLET PO SCH (19:40)
[2019-01-16] MEDS: Nicotine 21 MG PATCH.TD24 TD SCH (21:24)
--- NOTE | 2019-01-16 23:59 | Nephrology Progress Note ---
Date of Encounter: 01/16/19 Time of Encounter: 12:00 - Assessment and Plan (1) Hyponatremia Current Visit: Yes Status: Acute Sodium noted at 132 after initial acute rise yesterday from 119 to 127 Continue fluid restriction to 2 liters a day Continue liberalized sodium in diet Urine osm consistent with polydipsia Can stop serial sodium checks at this time (2) Elbow fracture, right Current Visit: Yes Status: Acute Ortho on board Qualifiers: Encounter type: initial encounter Fracture type: closed Qualified Code( s): S42.401A - Unspecified fracture of lower end of right humerus, initial encounter for closed fracture (3) Suicidal ideation Current Visit: Yes Status: Acute Psych on board Subjective Interval history: Pt seen and examined feeling better, just woke up from sleep. Sitter at bedside, pt demanding her meds to been given immediately Objective - Vital Signs Vital signs: Vital Signs Temp Pulse Resp BP Pulse Ox 01/16/19 21:07 98.5 F 94 15 124/74 98 01/16/19 14:53 98.1 F 101 24 133/73 96 01/16/19 11:06 98.0 F 101 16 117/71 97 01/16/19 07:44 98.2 F 100 16 118/64 96 01/16/19 04:24 97.6 F 68 16 142/68 98 01/16/19 01:10 97.6 F 80 16 147/72 95 Intake and Output 01/16/19 01/16/19 01/16/19 07:59 15:59 23:59 Intake Total 980 / 1470 490 / 1470 Output Total 760 / 760 Balance -760 / 710 980 / 710 490 / 710 Intake: IV Fluids 250 / 250 Dextrose 5% 250 ML @ 999 mls/hr 250 / 250 IVC .Q16M OLGA Rx#:[id number] Oral 980 / 1220 240 / 1220 Output: Urine 760 / 760 Other: Meal Refused lunch Dinner Percent of Meal Consumed 0% 20% Stool Size Small Small Stool Consistency formed loose liquid Stool Color Brown Brown Green # Voids 1 # Bowel Movements 1 Weight 43.2 kg Patient Weight 01/16/19 23:59 Weight 43.2 kg - General Appearance General appearance: Present: chronically ill (NAD) EENT: Present: ATNC, mucous membranes moist Neck: Present: no JVD, supple Respiratory: Present: clear Cardiology: Present: no edema, normal S1, normal S2 Gastrointestinal: Present: no tenderness, no guarding Integumentary: Present: warm and dry Neurologic: Present: no focal deficit Musculoskeletal: Present: no deformities Psychiatric: Present: mood/affect appropriate, cooperative - Lab 01/16/19 02:07 01/16/19 17:17 Most recent lab results 01/16/19 17:17 Calcium 9.3 Consult Discharge Plan - Plan Referrals: Ty Parikh MD [Primary Care Provider] -
[2019-01-17 04:51] LABS: BUN/Creatinine Ratio 17 (6-26); Blood Urea Nitrogen 11 mg/dL (8-23); Calcium 9.2 mg/dL (8.6-10.3); Carbon Dioxide 24 mEq/L (23-29); Chloride 99 mEq/L (98-107); Glucose 97 mg/dL (70-105); Osmolality,Calculated 273 (280-300); Sodium 132 mEq/L (136-145); eGFR For African Americans > 60 (> 60); eGFR For Non-African Americans > 60 (> 60)
[2019-01-17] MEDS: *HR* Heparin 5,000 UNIT/ML VIAL SQ SCH ×2 (05:51→17:12)
[2019-01-17] MEDS: Nicotine 21 MG PATCH.TD24 TD SCH (07:51)
[2019-01-17] MEDS: Sucralfate 1 GM TABLET PO SCH ×2 (07:52→22:02)
[2019-01-17] MEDS: clonazePAM 0.5 MG TABLET PO SCH ×4 (07:52→22:02)
[2019-01-17] MEDS: *HR* Promethazine 25 MG/ML VIAL IVP PRN ×3 (07:53→20:35)
--- NOTE | 2019-01-17 09:28 | Psychiatry Progress Note ---
Date of Encounter: 01/17/19 Time of Encounter: 09:28 Review of Systems Psychiatric: Reports: depression, anxiety, suicidal ideation. Denies: abnormal sleep pattern, change in appetite, homicidal ideation, auditory hallucinations, visual hallucinations, mood swings Results - Vital Signs Vital Signs: Temp Pulse Resp BP Pulse Ox 97.8 F 100 15 108/57 96 01/17/19 07:11 01/17/19 07:11 01/17/19 07:11 01/17/19 07:11 01/17/19 07:11 - Labs Labs: Laboratory Results - last 24 hr 01/16/19 01/17/19 17:17 04:13 Sodium 134 L 132 L Potassium 3.9 4.0 Chloride 98 99 Carbon Dioxide 28 24 BUN 10 11 Creatinine 0.59 L 0.63 Est GFR ( Amer) > 60 > 60 Est GFR (Non-Af Amer) > 60 > 60 BUN/Creatinine Ratio 17 17 Glucose 89 97 Calculated Osmolality 277 L 273 L Calcium 9.3 9.2 Assessment and Plan (1) Depression Current visit: No Status: Acute Qualifiers: Depression Type: major depressive disorder Major depression recurrence: recurrent Active/Remission status: currently active Major depression episode severity: severe Psychotic features: without psychotic features Qualified C ode(s): F33.2 - Major depressive disorder, recurrent severe without psychotic features Consult Discharge Plan - Plan Referrals: Ty Parikh MD [Primary Care Provider] - - Attending Attestation I examined this patient and my medical decision-making was reviewed with the Resident Physician. I agree with the documented findings, disposition and treatment plan as described except to the extent set forth below. Continue to recommend placement [facility] when she is medically stable. Psychiatry Exam - Constitutional Vitals: Temp Pulse Resp BP Pulse Ox 97.8 F 100 15 108/57 96 01/17/19 07:11 01/17/19 07:11 01/17/19 07:11 01/17/19 07:11 01/17/19 07:11
--- NOTE | 2019-01-17 14:02 | Internal Med Progress Note ---
Hospitalist Progress Note - Encounter Date of Encounter: 01/17/19 Time of Encounter: 10:34 - Subjective Interval History: Patient was seen at bedside. Currently denies any suicidal ideation. Mentions that she was saying that she is having suicidal ideation because she wanted to get her Klonopin. Denies any fever, chills, rigors. Still endorses a pain in the right elbow. Also complaining of the pain in the right lower quadrant of the abdomen. She is concerned that she may be having appendicitis. Denies chest pain or shortness of breath. - Exam Vitals: Temp Pulse Resp BP Pulse Ox 97.9 F 102 14 143/74 97 01/17/19 11:00 01/17/19 11:00 01/17/19 11:00 01/17/19 11:00 01/17/19 11:00 Exam: General: Alert and oriented, no physical distress, able to follow commands. Respiratory: Normal vesicular breathing, no added sounds, breathing equal in both sides. CVS: Normal heart sounds, no murmurs, regular rhthm, no edema Extremities: No peripheral edema, peripheral pulses intact. Lymph nodes: No lymphadenopathy Musculoskeleal: Right arm wrapped. Tenderness with motion Gastrointestinal: Soft, nontender abdomen, normal abdominal sounds. No distention noted. No tenderness or rigidity in the right lower quadrant of the abdomen. No rebound tenderness. Genitourinary: No paravertebral tenderness. Skin: No rash, ulcers or wound. Neurological: Alert and oriented. No focal deficits. Cranial nerves II-XII intact. 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 plasma osmolality is very low. Urine osmolality is also low which goes with polydipsia Patient initial sodium was 119, went up to 127, remained stable around 125, then went up to 133, and it remained stable around 132-134. Nephrology on board. Appreciate recommendations. Fluid restriction at this point of 2 L/day as per nephrology recommendations. -As per psychiatric recommendations, hold off on olanzapine. (2) Tobacco abuse Current Visit: Yes Status: Acute Assessment and Plan: Smoked 3 pack per day. Nicotine patches ordered. Patient advised to quit smoking. (3) Elbow fracture, right Current Visit: Yes Status: Acute Assessment and Plan: Because of the fall. Fall because of the tremors. Ortho consulted. Recommended conservative management. x-ray findings Nondisplaced fracture right capitellum -Pain management. (4) Suicidal ideation Current Visit: Yes Status: Acute Assessment and Plan: Sitter ordered Today, patient mentions that she does not want to kill herself , she was saying initially because she wanted to get her Klonopin. Psychiatri on board and recommending [facility] electrical maintenance worker on case. Awaiting placement. (5) Anxiety Current Visit: No Status: Acute Assessment and Plan: Restart the patient Klonopin. Continue Cymbalta and trazodone (6) Cannabis abuse Current Visit: No Status: Acute Assessment and Plan: Advised to stop using cannabis. (7) Depression Current Visit: No Status: Acute Assessment and Plan: History of depression. Restart the patient Klonopin. Trazodone and Cymbalta have also been started as per psychiatric recommendations.. (8) Benzodiazepine dependence Current Visit: Yes Status: Acute Assessment and Plan: Patient has been having tremors because of the benzodiazepine withdrawal. To start the patient back on her home dose of Klonopin. (9) Right lower quadrant pain Current Visit: Yes Status: Acute Assessment and Plan: Patient is complaining of sharp shooting right lower quadrant pain. Examination was benign. No subjective evidence of any infection. WBC count was normal at presentation. No fever. Continue to monitor for now. Pain management - Time Spent with Patient Total time spent is greater than 50% in coordination of care (as documented) at patient's floor/unit and/or counseling patient: Internal Medicine: Result - Labs CBC & Chem 7: 01/16/19 02:07 01/17/19 04:13 Labs: BMP 01/16/19 01/17/19 17:17 04:13 Sodium 134 L 132 L Potassium 3.9 4.0 Chloride 98 99 Carbon Dioxide 28 24 BUN 10 11 Creatinine 0.59 L 0.63 Glucose 89 97 Calcium 9.3 9.2 Consult Discharge Plan - Plan Referrals: Ty Parikh MD [Primary Care Provider] - (3) Elbow fracture, right Qualifiers: Encounter type: initial encounter Fracture type: closed Qualified Code(s): S42.401A - Unspecified fracture of lower end of right humerus, initial encounter for closed fracture (7) Depression Qualifiers: Depression Type: major depressive disorder Major depression recurrence: recurrent Active/Remission status: currently active Major depression episode severity: severe Psychotic features: without psychotic features Qualified Code(s): F33.2 - Major depressive disorder, recurrent severe without psychotic features
--- NOTE | 2019-01-17 16:30 | Nephrology Progress Note ---
Date of Encounter: 01/17/19 Time of Encounter: 12:00 - Assessment and Plan (1) Hyponatremia Status: Acute Sodium stabilized at 132 Continue fluid restriction Continue liberalized sodium in diet Will sign off, please reconsult prn (2) Elbow fracture, right Status: Acute Ortho on board Qualifiers: Encounter type: initial encounter Fracture type: closed Qualified Code( s): S42.401A - Unspecified fracture of lower end of right humerus, initial encounter for closed fracture (3) Suicidal ideation Status: Acute Per primary, Psych consult Subjective Interval history: Pt seen and examined feeling better,no new complaints. Objective - Vital Signs Vital signs: Vital Signs Temp Pulse Resp BP Pulse Ox 01/17/19 11:00 97.9 F 102 14 143/74 97 01/17/19 07:11 97.8 F 100 15 108/57 96 01/17/19 04:00 97.7 F 90 16 114/69 98 01/17/19 00:30 97.6 F 93 16 126/71 95 01/16/19 21:07 98.5 F 94 15 124/74 98 Intake and Output 01/17/19 01/17/19 01/17/19 07:59 15:59 23:59 Intake Total 640 / 640 Output Total 400 / 750 350 / 750 Balance -400 / -110 290 / -110 Intake: Oral 640 / 640 Output: Urine 400 / 750 350 / 750 Other: Meal Lunch Percent of Meal Consumed 0% Stool Size Small Stool Consistency soft Stool Color Brown # Voids 1 # Bowel Movements 1 Weight 42.9 kg Patient Weight 01/17/19 23:59 Weight 42.9 kg - General Appearance General appearance: Present: chronically ill (NAD) EENT: Present: ATNC, mucous membranes moist Neck: Present: no JVD, supple Respiratory: Present: clear Cardiology: Present: no edema, normal S1, normal S2 Gastrointestinal: Present: no tenderness, no guarding Integumentary: Present: warm and dry Neurologic: Present: no focal deficit Musculoskeletal: Present: no deformities Psychiatric: Present: mood/affect appropriate, cooperative - Lab 01/19/19 05:00 01/19/19 05:00 Most recent lab results 01/17/19 04:13 Calcium 9.2 Consult Discharge Plan - Plan Additional Instructions: Free water restriction of 1500 ml/day Referrals: Ty Parikh MD [Primary Care Provider] - Prescriptions: clonazePAM [Klonopin] 0.5 mg PO QID 7 Days #28 tablet
[2019-01-17] MEDS: Acetaminophen 325 MG TABLET PO PRN (17:11)
[2019-01-17] MEDS ORDERED: Isovue-370 500 ML BOTTLE IVP ONE (19:53)
[2019-01-17] MEDS: traZODone 50 MG TABLET PO SCH (22:02)
[2019-01-17] MEDS: traMADol 50 MG TABLET PO PRN (23:16)
[2019-01-18 01:30] LABS: Basophils # 0.1 K/mcL (0.0-0.2); Eosinophils # 0.1 K/mcL (0.0-0.6); Eosinophils % 1.7 %; Hematocrit 33.2 % (35.3-44.9); Hemoglobin 11.3 g/dL (11.5-15.4); Immature Granulocytes % 0.1 % (0-4); Lymphocytes # 2.3 K/mcL (0.6-4.6); Lymphocytes % 32.5 %; Mean Corpuscular Hemoglobin 32.1 pg (28.0-33.3); Mean Corpuscular Volume 94.3 fL (83.0-100.0); Mean Platelet Volume 10.4 fL (9.4-12.4); Monocytes # 0.7 K/mcL (0.0-1.3); Monocytes % 9.6 %; Platelet Count 227 K/mcL (140-400); Red Blood Count 3.52 M/mcL (3.82-4.97); Red Cell Distribution Width 12.5 % (11.5-14.5); Segmented Neutrophils % 55.1 %; White Blood Count 7.2 K/mcL (4.3-11.1)
[2019-01-18 01:47] LABS: BUN/Creatinine Ratio 18 (6-26); Blood Urea Nitrogen 10 mg/dL (8-23); Carbon Dioxide 29 mEq/L (23-29); Chloride 98 mEq/L (98-107); Glucose 101 mg/dL (70-105); Osmolality,Calculated 275 (280-300); Potassium 4.1 mEq/L (3.5-5.1); Sodium 133 mEq/L (136-145); eGFR For African Americans > 60 (> 60); eGFR For Non-African Americans > 60 (> 60)
[2019-01-18] MEDS: *HR* Heparin 5,000 UNIT/ML VIAL SQ SCH ×2 (05:11→16:37)
[2019-01-18] MEDS: traMADol 50 MG TABLET PO PRN ×3 (05:11→20:31)
--- NOTE | 2019-01-18 08:38 | Psychiatry Progress Note ---
Date of Encounter: 01/18/19 Time of Encounter: 08:38 Subjective Interval history: Ms. Osullivan was seen and evaluated at the bedside. She states that she is feeling well today, and denies any suicidal ideation. She states that she would like to go home; however, she is open to the idea of outpatient rehabilitation to improve her strength. Nurses staff reports no significant overnight events. Review of Systems Psychiatric: Reports: depression, anxiety. Denies: abnormal sleep pattern, suicidal ideation, change in appetite, homicidal ideation, auditory hallucinations, visual hallucinations, mood swings Results - Vital Signs Vital Signs: Temp Pulse Resp BP Pulse Ox 98.0 F 71 15 130/54 96 01/18/19 05:09 01/18/19 05:09 01/17/19 23:12 01/18/19 05:09 01/18/19 05:09 - Labs Labs: Laboratory Results - last 24 hr 01/18/19 01/18/19 01:10 01:10 WBC 7.2 RBC 3.52 L Hgb 11.3 L Hct 33.2 L MCV 94.3 MCH 32.1 MCHC 34.0 RDW 12.5 Plt Count 227 MPV 10.4 Immature Gran % 0.1 Seg Neutrophils % 55.1 Lymphocytes % 32.5 Monocytes % 9.6 Eosinophils % 1.7 Basophils % 1.0 Neutrophils # 4.0 Lymphocytes # 2.3 Monocytes # 0.7 Eosinophils # 0.1 Basophils # 0.1 Sodium 133 L Potassium 4.1 Chloride 98 Carbon Dioxide 29 BUN 10 Creatinine 0.56 L Est GFR ( Amer) > 60 Est GFR (Non-Af Amer) > 60 BUN/Creatinine Ratio 18 Glucose 101 Calculated Osmolality 275 L Calcium 9.0 - Impressions ITS Impressions Abdomen/Pelvis CT 01/17/19 19:53 IMPRESSION: 1. No acute abnormality in the abdomen or pelvis. Normal appendix. No obstructive uropathy. 2. Colonic diverticulosis. 3. Status post cholecystectomy. 4. Severe bilateral hip degenerative changes. D/ / Praveen Bloom MD / Praveen Bloom MD Interpreting Provider: Praveen Bloom MD Assessment and Plan (1) Depression Current visit: No Status: Acute Additional Plan: On evaluation today, patient denies any suicidal ideation, which is consistent with what she reported yesterday. She continues to voice that she wants to return home, though she is agreeable to SNF for physical rehabilitation. At this time, patient does not meet criteria for pink slip, and sitter can be discontinued from psychiatry perspective. Agree with SNF/ECF placement for ongoing PT/OT needs. While at rehab facility, patient can receive additional psychiatric evaluation and treatment. Qualifiers: Depression Type: major depressive disorder Major depression recurrence: recurrent Active/Remission status: currently active Major depression episode severity: severe Psychotic features: without psychotic features Qualified Code(s): F33.2 - Major depressive disorder, recurrent severe without psychotic features Consult Discharge Plan - Plan Referrals: Ty Parikh MD [Primary Care Provider] - - Attending Attestation I examined this patient and my medical decision-making was reviewed with the Resident Physician. I agree with the documented findings, disposition and treatment plan as described except to the extent set forth below. Patient is doing well this morning. She has denied suicidal thoughts, ideations, or plans for the last 2 days. At this point she no longer meets pink slip criteria and this can be discontinued as can sitter from psychiatry standpoint. Agree with going to the SNF for her physical rehabilitation. She can follow with mental health there. Psychiatry Exam - Constitutional Vitals: Temp Pulse Resp BP Pulse Ox 98.0 F 71 15 130/54 96 01/18/19 05:09 01/18/19 05:09 01/17/19 23:12 01/18/19 05:09 01/18/19 05:09 General appearance: unkempt, thin - Musculoskeletal Strength & Tone: normal for patient (Grossly normal on observation) - Psychiatric Patient Orientation: Yes Person, Yes Time, Yes Place Level of alertness: Alert Behavior: calm, cooperative Psychomotor activity: Normal Eye Contact: Maintains Eye Contact Mood Description: Euthymic/stable Affect description: congruent with mood, full range Speech Volume: Normal Speech pattern: normal rate, normal rhythm, normal tone, fluent, spontaneous Language & Vocabulary: consistent with education Thought Process: Linear, Goal Oriented Thought Content: No Suicidal ideation, No Homicidal ideation, No Overt delusions Perceptual Disturbances: No Auditory hallucinations, No Visual hallucinations Attention Span Ability: Capable of Focused Attention Memory Description: Grossly Intact Intelligence Estimate: Average Judgment: Limited Insight: Partial
[2019-01-18] MEDS: Nicotine 21 MG PATCH.TD24 TD SCH (10:14)
[2019-01-18] MEDS: clonazePAM 0.5 MG TABLET PO SCH ×4 (10:14→20:32)
[2019-01-18] MEDS: Sucralfate 1 GM TABLET PO SCH ×2 (10:14→20:32)
--- NOTE | 2019-01-18 14:24 | Internal Med Progress Note ---
Hospitalist Progress Note - Encounter Date of Encounter: 01/18/19 Time of Encounter: 11:15 - Subjective Interval History: Patient seen at bedside. Complaining of mild pain in the right elbow. Due to the pain in the abdomen, got a CT scan of the abdomen last night which did not show any acute abnormalities. There is mild edema of the right upper extremity. Concern for cellulitis. Patient denies fever, chills, rigors. - Exam Vitals: Temp Pulse Resp BP Pulse Ox 98.0 F 98 17 121/64 98 01/18/19 11:42 01/18/19 11:42 01/18/19 11:42 01/18/19 08:39 01/18/19 11:42 Exam: General: Alert and oriented, no physical distress, able to follow commands. Respiratory: Normal vesicular breathing, no added sounds, breathing equal in both sides. CVS: Normal heart sounds, no murmurs, regular rhthm, no edema Extremities: No peripheral edema, peripheral pulses intact. Lymph nodes: No lymphadenopathy Musculoskeleal: Right arm edematousa s compared to left. Mild erythema aaprecaited. Tenderness with motion Gastrointestinal: Soft, nontender abdomen, normal abdominal sounds. No distention noted. No tenderness or rigidity in the right lower quadrant of the abdomen. No rebound tenderness. Genitourinary: No paravertebral tenderness. Skin: No rash, ulcers or wound. Neurological: Alert and oriented. No focal deficits. Cranial nerves II-XII intact. 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 plasma osmolality is very low. Urine osmolality is also low which goes with polydipsia Patient initial sodium was 119, went up to 127, remained stable around 125, th en went up to 133 and has been stable here Nephrology on board. Appreciate recommendations. Fluid restriction at this point of 2 L/day as per nephrology recommendations. -As per psychiatric recommendations, hold off on olanzapine. (2) Tobacco abuse Current Visit: Yes Status: Acute Assessment and Plan: Smoked 3 pack per day. Nicotine patches ordered. Patient advised to quit smoking. (3) Elbow fracture, right Current Visit: Yes Status: Acute Assessment and Plan: Because of the fall. Fall because of the tremors. Ortho consulted. Recommended conservative management. x-ray findings Nondisplaced fracture right capitellum X ray repated again becaseu of the edema, concerning for the cellulitis. Started on Bactrim DS X ra was repeated again, did not show any signs of joint infection involvement. -Pain management. (4) Suicidal ideation Current Visit: Yes Status: Acute Assessment and Plan: Today, patient mentions that she does not want to kill herself , she was saying initially because she wanted to get her Klonopin. Psychiatri on board , siter removed, pink slip removed (5) Anxiety Current Visit: No Status: Acute Assessment and Plan: Restart the patient Klonopin. Continue Cymbalta and trazodone (6) Cannabis abuse Current Visit: No Status: Acute Assessment and Plan: Advised to stop using cannabis. (7) Depression Current Visit: No Status: Acute Assessment and Plan: History of depression. Restart the patient Klonopin. Trazodone and Cymbalta have also been started as per psychiatric recommenda tions.. (8) Benzodiazepine dependence Current Visit: Yes Status: Acute Assessment and Plan: Patient has been having tremors because of the benzodiazepine withdrawal. To start the patient back on her home dose of Klonopin. (9) Right lower quadrant pain Current Visit: Yes Status: Acute Assessment and Plan: CT scab was done overnugth, negative Mentions improvement today Continue to monitor for now. Pain management - Time Spent with Patient Total time spent is greater than 50% in coordination of care (as documented) at patient's floor/unit and/or counseling patient: Internal Medicine: Result - Labs CBC & Chem 7: 01/18/19 01:10 01/18/19 01:10 Labs: Short CBC 01/18/19 Range/Units 01:10 WBC 7.2 (4.3-11.1) K/mcL Hgb 11.3 L (11.5-15.4) g/dL Hct 33.2 L (35.3-44.9) % Plt Count 227 (140-400) K/mcL Neutrophils # 4.0 (1.6-8.9) K/mcL BMP 01/18/19 01:10 Sodium 133 L Potassium 4.1 Chloride 98 Carbon Dioxide 29 BUN 10 Creatinine 0.56 L Glucose 101 Calcium 9.0 - Impressions Impressions Abdomen/Pelvis CT 01/17/19 19:53 IMPRESSION: 1. No acute abnormality in the abdomen or pelvis. Normal appendix. No obstructive uropathy. 2. Colonic diverticulosis. 3. Status post cholecystectomy. 4. Severe bilateral hip degenerative changes. D/ / Praveen Bloom MD / Praveen Bloom MD Interpreting Provider: Praveen Bloom MD Elbow X-Ray 01/18/19 10:34 IMPRESSION: Mildly displaced capitellar fracture, similar in alignment with a joint effusion again identified. No osseous destructive changes are seen within the joint. D/ / Daniel Mckee MD / Daniel Mckee MD Interpreting Provider: Daniel Mckee MD Consult Discharge Plan - Plan Referrals: Ty Parikh MD [Primary Care Provider] - (3) Elbow fracture, right Qualifiers: Encounter type: initial encounter Fracture type: closed Qualified Code(s): S42.401A - Unspecified fracture of lower end of right humerus, initial encounter for closed fracture (7) Depression Qualifiers: Depression Type: major depressive disorder Major depression recurrence: recurrent Active/Remission status: currently active Major depression episode severity: severe Psychotic features: without psychotic features Qualified Code(s): F33.2 - Major depressive disorder, recurrent severe without psychotic features
[2019-01-18] MEDS: traZODone 50 MG TABLET PO SCH (20:32)
[2019-01-18] MEDS ORDERED: Sulfamethoxazole/Trimeth DS 1 EACH TABLET PO SCH (21:00)
[2019-01-19] MEDS: Acetaminophen 325 MG TABLET PO PRN ×2 (00:07→17:09)
[2019-01-19] MEDS: traMADol 50 MG TABLET PO PRN ×2 (03:58→12:11)
[2019-01-19] MEDS: Ondansetron 4 MG/2 ML VIAL IVP PRN ×2 (04:09→14:00)
[2019-01-19 05:31] LABS: Basophils # 0.1 K/mcL (0.0-0.2); Basophils % 0.8 %; Eosinophils # 0.2 K/mcL (0.0-0.6); Eosinophils % 2.8 %; Hematocrit 30.6 % (35.3-44.9); Hemoglobin 10.4 g/dL (11.5-15.4); Immature Granulocytes % 0.3 % (0-4); Lymphocytes # 1.9 K/mcL (0.6-4.6); Mean Corpuscular Hemoglobin 32.5 pg (28.0-33.3); Mean Corpuscular Volume 95.6 fL (83.0-100.0); Mean Platelet Volume 10.4 fL (9.4-12.4); Monocytes # 0.7 K/mcL (0.0-1.3); Neutrophils # 3.5 K/mcL (1.6-8.9); Platelet Count 232 K/mcL (140-400); Red Cell Distribution Width 12.3 % (11.5-14.5); Segmented Neutrophils % 55.1 %; White Blood Count 6.4 K/mcL (4.3-11.1)
[2019-01-19] MEDS: *HR* Heparin 5,000 UNIT/ML VIAL SQ SCH ×2 (05:40→17:11)
[2019-01-19 05:51] LABS: BUN/Creatinine Ratio 22 (6-26); Blood Urea Nitrogen 13 mg/dL (8-23); Calcium 8.8 mg/dL (8.6-10.3); Carbon Dioxide 28 mEq/L (23-29); Chloride 97 mEq/L (98-107); Glucose 86 mg/dL (70-105); Osmolality,Calculated 267 (280-300); Potassium 4.1 mEq/L (3.5-5.1); Sodium 129 mEq/L (136-145); eGFR For African Americans > 60 (> 60); eGFR For Non-African Americans > 60 (> 60)
[2019-01-19] MEDS: Sucralfate 1 GM TABLET PO SCH (09:54)
[2019-01-19] MEDS: clonazePAM 0.5 MG TABLET PO SCH ×3 (09:54→17:09)
[2019-01-19] MEDS: Nicotine 21 MG PATCH.TD24 TD SCH (09:54)
[2019-01-19 11:40] VITALS: BP 137/88
--- NOTE | 2019-01-19 15:12 | Discharge Summary ---
- NOTES TO OUTPATIENT PROVIDER Notes to Outpatient Provider: Came with the suicidal idetion, fall and hyonatremia. Sodium is 129 and stable, fluid restriction of 1500ml. High sodium diet. Repeat in 1 week. Fall lead to elbow fracture, conservative management. No suicidal ideation, cleared by psych. Date of Encounter: 01/19/19 Time of Encounter: 09:15 - Discharge Diagnosis (1) Hyponatremia Priority: Primary Status: Acute (2) Tobacco abuse Priority: Secondary Status: Acute (3) Elbow fracture, right Priority: Secondary Status: Acute Qualifiers: Encounter type: initial encounter Fracture type: closed Qualified Code(s): S42.401A - Unspecified fracture of lower end of right humerus, initial encounter for closed fracture (4) Suicidal ideation Priority: Secondary Status: Acute (5) Anxiety Priority: Secondary Status: Acute (6) Cannabis abuse Priority: Secondary Status: Acute (7) Depression Priority: Secondary Status: Acute Qualifiers: Depression Type: major depressive disorder Major depression recurrence: recurrent Active/Remission status: currently active Major depression episode severity: severe Psychotic features: without psychotic features Qualified Code(s): F33.2 - Major depressive disorder, recurrent severe without psychotic features (8) Benzodiazepine dependence Priority: Secondary Status: Acute (9) Right lower quadrant pain Priority: Secondary Status: Acute Hospital course: Ms. Osullivan is a 63 year old female with a past medical history significant for anxiety, bipolar disorder, prior suicide attempt, was brought to the hospital from the outside hospital because of the suicidal ideation, hyponatremia and fall. Regarding his hyponatremia, patient's sodium was 119 at the time of presentation, nephrology was consulted, likely etiology seems to be primary polydipsia, currently, patient sodium is stable around 130. Her most recent sodium is 129 today. Patient is recommended freewater restriction of 1500 mL per day. Restart the patient back on her home psychiatric medications. Regarding her fall, patient was found to have right elbow fracture. Orthopedics was consulted. Recommended conservative treatment with the use of a sling and starting the patient on active range of motion to minimize stiffness. There were concerns of cellulitis developing 2 days after the fall, patient was given 1 dose of Bactrim but on reevaluation it seems to be most likely dependent edema and antibiotics were stopped. Patient initially expressed suicidal ideation. Later on she mentioned that she only said that she is having suicidal ideation because she wanted to get her Klonopin. Patient is currently dependent on benzodiazepines. She was restarted back her on the Klonopin because she was getting tremors because of discontinuat ion of the Klonopin. Decision to taper down the Klonopin deferred to the patient PCP. It is less today recommended physical therapy and rehabilitation, patient is being transferred today in stable condition. She is currently hemodynamically stable. Did not have any acute complaints today except for mild pain for which she has been taking ibuprofen. - Time Spent with Patient Total time spent providing and/or coordinating discharge services: 35 minutes - Discharge Medications Prescriptions: New clonazePAM [Klonopin] 0.5 mg PO QID 7 Days #28 tablet Ibuprofen [Motrin] 600 mg PO Q6HR PRN tablet PRN Reason: Pain Nicotine Patch [Nicoderm] 21 mg TD DAILY patch.td24 Continued Pantoprazole Sodium [Protonix] 40 mg PO DAILY Ranitidine HCl [Acid Construction And Maintenance Inspector] 150 mg PO BID Sucralfate [Carafate] 1 gm PO BID Tolterodine Tartrate [Detrol] 1 mg PO BID traZODone [TraZODone] 50 mg PO HS DULoxetine [Cymbalta] 60 mg PO BID OLANZapine [Zyprexa] 15 mg PO HS Discontinued clonazePAM [Clonazepam] 0.5 mg PO HS clonazePAM [Clonazepam] 1 mg PO QAM Home Medications: DULoxetine [Cymbalta] 60 mg PO BID 01/24/15 [History] OLANZapine [Zyprexa] 15 mg PO HS 09/13/16 [History] Pantoprazole Sodium [Protonix] 40 mg PO DAILY 01/16/19 [History] Ranitidine HCl [Acid Construction And Maintenance Inspector] 150 mg PO BID 01/16/19 [History] Sucralfate [Carafate] 1 gm PO BID 01/16/19 [History] Tolterodine Tartrate [Detrol] 1 mg PO BID 01/16/19 [History] traZODone [TraZODone] 50 mg PO HS 01/16/19 [History] Ibuprofen [Motrin] 600 mg PO Q6HR PRN tablet 01/19/19 [Rx] Nicotine Patch [Nicoderm] 21 mg TD DAILY patch.td24 01/19/19 [Rx] clonazePAM [Klonopin] 0.5 mg PO QID 7 Days #28 tablet 01/19/19 [Rx] Allergies/Adverse Reactions: Allergy/AdvReac Type Severity Reaction Status Date / Time Penicillins Allergy Difficulty Verified 01/15/19 13:53 Breathing Date of admission: 01/15/19 14:48 Primary care physician: Ty Parikh MD Consults: 01/15/19 14:39 Consult to Psychiatry [CONS] Stat Consulting Provider: Psychiatry [facility] Reason consult: [place] slip on chart [place] initiated date and time: Initiated at [place] Call Completed: Yes 01/15/19 16:10 Consult to Nephrology [CONS] Stat Consulting Provider: [facility]/ORIANN/KRISSY/ISELA Reason for Consult: Hyponatremia Call Completed: Yes 01/15/19 16:19 Consult to Orthopedic Surgery [CONS] Routine Consulting Provider: Orthoped[facility] Reason for Consult: Fractured elbow Call Completed: Yes 01/15/19 19:58 Consult to Occupational Therapy [CONS] Routine Comment: Evaluate, develop and implement POC Reason for Consult: Capitellum Fx Does patient have active BEDREST order?: No Is patient medically & hemodynamically stable?: Yes 01/16/19 08:26 Consult to Physical Therapy [CONS] Routine Comment: Evaluate, develop and implement POC Reason for Consult: Capitellum fx Does patient have active BEDREST order?: No Is patient medically & hemodynamically stable?: Yes 01/17/19 10:15 Consult to Ladies' Locker Room Attendant [CONS] Routine Reason for SW Consult: [facility]-Psych placement. Endorsing plans of self-harm. 01/18/19 14:18 Consult to Wound Care [CONS] Routine Reason for Consult: Right elbow fracture and wound folowing a fall Call Completed: No - Constitutional Vitals: Temp Pulse Resp BP Pulse Ox 98.7 F 73 16 137/88 97 01/19/19 11:40 01/19/19 11:40 01/19/19 11:40 01/19/19 11:40 01/19/19 11:40 Exam: General: Alert and oriented, no physical distress, able to follow commands. Respiratory: Normal vesicular breathing, no added sounds, breathing equal in both sides. CVS: Normal heart sounds, no murmurs, regular rhthm, no edema Extremities: No peripheral edema, peripheral pulses intact. Lymph nodes: No lymphadenopathy Musculoskeleal: Right arm edematousa s compared to left, improved with elevation as comared to yesterday, no signs of cellulitis. Gastrointestinal: Soft, nontender abdomen, normal abdominal sounds. No distention noted. No tenderness or rigidity in the right lower quadrant of the abdomen. No rebound tenderness. Genitourinary: No paravertebral tenderness. Skin: No rash, ulcers or wound. Neurological: Alert and oriented. No focal deficits. Cranial nerves II-XII intact. - Patient Status Disposition: Transfer SNF Condition: Good - Discharge Instructions Follow Up With: Ty Parikh MD [Primary Care Provider] - Additional Instructions: Free water restriction of 1500 ml/day - Diet and Activity Activity: as per physical therapy, increase activity as tolerated Diet: other (Free water restriction of 1500 ml/day.)
--- NOTE | 2019-01-19 15:23 | Physician Discharge Referral ---
ExtendedCare Referral Info Institutional Level of Care: Skilled - Diagnosis (1) Hyponatremia Priority: Primary Status: Acute (2) Tobacco abuse Priority: Secondary Status: Acute (3) Elbow fracture, right Priority: Secondary Status: Acute (4) Suicidal ideation Priority: Secondary Status: Acute (5) Anxiety Priority: Secondary Status: Acute (6) Cannabis abuse Priority: Secondary Status: Acute (7) Depression Priority: Secondary Status: Acute (8) Benzodiazepine dependence Priority: Secondary Status: Acute (9) Right lower quadrant pain Priority: Secondary Status: Acute - Transfer Medications Prescriptions: clonazePAM [Klonopin] 0.5 mg PO QID 7 Days #28 tablet Home Medications: DULoxetine [Cymbalta] 60 mg PO BID 01/24/15 [History] OLANZapine [Zyprexa] 15 mg PO HS 09/13/16 [History] Pantoprazole Sodium [Protonix] 40 mg PO DAILY 01/16/19 [History] Ranitidine HCl [Acid Tower Switch Operator] 150 mg PO BID 01/16/19 [History] Sucralfate [Carafate] 1 gm PO BID 01/16/19 [History] Tolterodine Tartrate [Detrol] 1 mg PO BID 01/16/19 [History] traZODone [TraZODone] 50 mg PO HS 01/16/19 [History] Ibuprofen [Motrin] 600 mg PO Q6HR PRN tablet 01/19/19 [Rx] Nicotine Patch [Nicoderm] 21 mg TD DAILY patch.td24 01/19/19 [Rx] clonazePAM [Klonopin] 0.5 mg PO QID 7 Days #28 tablet 01/19/19 [Rx] Allergies/Adverse Reactions: Allergy/AdvReac Type Severity Reaction Status Date / Time Penicillins Allergy Difficulty Verified 01/15/19 13:53 Breathing - Respiratory Orders Smoking Cessation: Smoking cessation has been advised. For more information, call the [place] Tobacco Quit Line at 2-683-BCUS-NOW. CERTIFICATION: I certify that the transfer of the above named patient to an Extended Care Facility is necessary for the continuing treatment of the diagnosis listed. The above information is true and accurate reflection of patient's current condition. Confidential - Redisclosure prohibited without a patient's written consent.
== END 2019-01-19 19:15 ==
LOC: EMEROOARM 13:32 → 3BNU 13:32 → SUATTDRO 14:48 → 3BNU 15:26
PROVIDERS: ADMIT Internal Medicine Nephrology; ATTEND Internal Medicine

== ENCOUNTER 2019-12-13 05:32 | Observation (INO) ==
[2019-12-13 07:18] VITALS: BP 107/54
[2019-12-13 10:50] LABS: BUN/Creatinine Ratio 8 (6-26); Blood Urea Nitrogen 5 mg/dL (8-23); Calcium 9.4 mg/dL (8.6-10.3); Carbon Dioxide 25 mEq/L (23-29); Chloride 105 mEq/L (98-107); Glucose 100 mg/dL (70-105); Magnesium 2.2 mg/dL (1.6-2.6); Osmolality,Calculated 281 (280-300); Potassium 4.2 mEq/L (3.5-5.1); Sodium 137 mEq/L (136-145); eGFR For African Americans > 60 (> 60); eGFR For Non-African Americans > 60 (> 60)
[2019-12-13] MEDS ORDERED: Naloxone 0.4 MG/ML INJ IVP PRN (11:17)
[2019-12-13 11:49] LABS: Thyroid Stimulating Hormone 2.897 mcIU/mL (0.340-5.600)
== END 2019-12-13 17:22 | disposition home or self-care (01) ==
LOC: 3BNU
PROVIDERS: ADMIT Internal Medicine; ATTEND Internal Medicine